=== PATIENT | male | born 1970 | race Caucasian/White ===

== ENCOUNTER 2018-08-12 16:30 | Observation (INO) ==
[2018-08-12] MEDS ORDERED: ASPIRIN PR ONE (16:40)
[2018-08-12] MEDS ORDERED: ASPIRIN PO ONE (16:40)
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
[2018-08-12 17:27] LABS: BASO# 0.07 X1000 (0.0-0.2); BASO% 0.6 % (0.0-0.8); EOS# 0.06 X1000 (0.0-0.7); EOS% 0.5 % (0.0-10.0); HEMATOCRIT 44.7 % (42.0-52.0); HEMOGLOBIN 16.1 g/dL (14.0-18.0); IMM GRAN# 0.07 X1000 (0.0-0.04); IMM GRAN% 0.6 % (0.0-0.5); LYMPH# 2.53 X1000 (1.2-3.4); LYMPH% 23.1 % (20.5-51.1); MCH 29.5 PG (27-31); MONO# 0.76 X1000 (0.11-0.59); MONO% 6.9 % (1.7-9.3); MPV 9.4 FL (7.4-10.4); NEUT# 7.47 X1000 (1.4-6.5); NEUT% 68.3 % (42.2-75.2); PLT 278 X1000 (130-400); RBC 5.45 XMIL (4.7-6.1); RDW 13.1 % (11.5-14.5); WBC 10.96 X1000 (4.8-10.8)
[2018-08-12 17:54] LABS: INR 0.96; PROTIME 13.5 Seconds (11.0-16.0)
--- NOTE | 2018-08-12 17:57 | Diag Imaging Result Doc PS360 ---
EXAM: CHEST-2 VIEWS 08/12/2018 HISTORY: cp TECHNIQUE: AP upright and sitting lateral chest COMMENT: There is elevation of the right hemidiaphragm. This is probably chronic but there are no previous studies available for comparison. The heart size and pulmonary vascularity are within normal limits. There is no evidence of acute pulmonary disease. IMPRESSION: No definite evidence of acute disease. Electronically signed by Juve Robert 08/12/2018 5:55 PM
[2018-08-12 18:07] LABS: AGAP 17; ALB/GLOB RATIO 1.5; ALBUMIN 4.5 g/dL (3.5-5.0); ALKALINE PHOSPHATASE 92 U/L (32-122); BUN 15 mg/dL (8-22); CALCIUM 9.8 mg/dL (8.8-10.2); CHLORIDE 99 mmol/L (98-107); CK PROFILE 147 U/L (24-204); COSMO 273; ESTIMATED GFR > 60; GLUCOSE 103 mg/dL (70-104); GOT 23 U/L (10-34); GPT 38 U/L (10-44); SODIUM 136 mmol/L (136-145); TCO2 20 mmol/L (25-35); TOTAL BILIRUBIN 0.59 mg/dL (0.20-1.00); TOTAL PROTEIN 7.6 g/dL (6.3-8.3)
--- NOTE | 2018-08-12 18:59 | Diag Imaging Result Doc PS360 ---
EXAM: CT HEAD W/O CONTRAST 08/12/2018 HISTORY: Memory Loss TECHNIQUE: This exam was performed using automated exposure control, adjustment of mA or kV according to patient size, and/or use of iterative reconstruction technique. COMMENT: There is no evidence of mass effect, bleed, or abnormal extra-axial fluid collection. There are no previous studies available for comparison. The visualized paranasal sinuses are clear. IMPRESSION: No evidence of acute intracranial disease. Electronically signed by Juve Robert 08/12/2018 6:57 PM
[2018-08-12 20:27] LABS: UR AMPHETAMINES QUAL NONE DETECTED (NONE DETECT); UR BARBITUATES QUAL NONE DETECTED (NONE DETECT); UR BENZODIAZEPIN QUAL NONE DETECTED (NONE DETECT); UR CANNABINOIDS QUAL NONE DETECTED (NONE DETECT); UR COCAINE QUAL NONE DETECTED (NONE DETECT); UR METHADONE QUAL NONE DETECTED (NONE DETECT); UR OPIATES QUAL NONE DETECTED (NONE DETECT); UR OXYCODONE QUAL NONE DETECTED (NONE DETECT); UR PCP QUAL NONE DETECTED (NONE DETECT)
--- NOTE | 2018-08-12 22:07 | HISTORY AND PHYSICAL ---
PRIMARY CARE PHYSICIAN: Dr. Otoole. CHIEF COMPLAINT: Chest pain. HISTORY OF PRESENTING ILLNESS: A 48-year-old male without any significant past medical history presented to emergency department with 1-day history of having chest pain. He describes it as a tightness and states that he was short of breath. The patient was evaluated in the emergency department. Due to his presenting symptoms it was thought that we will place him for observation for further evaluation management. At the time my examination he denied any headache, vision changes, fevers, chills, nausea, vomiting, diarrhea, hemoptysis, melena, weight changes but complained of chest pain and shortness of breath. PAST MEDICAL HISTORY: Includes none. PAST SURGICAL HISTORY: None. ALLERGIES: No known drug allergies. CURRENT MEDICATIONS: None. SOCIAL HISTORY: No history of smoking. Admits to social alcohol use. Denies any illicit drug use. FAMILY HISTORY: No history coronary disease. REVIEW OF SYSTEMS: Fourteen point review of system is as HPI. PHYSICAL EXAMINATION: GENERAL: Cooperative, friendly male he is resting comfortably now. VITAL SIGNS: Temperature 97.4 degrees, pulse 89, respiration 24, blood pressure 137/89. HEENT: Atraumatic, normocephalic. Extraocular movements intact. PERRLA. LUNGS: Clear to auscultation . ABDOMEN: Soft, positive bowel sounds. EXTREMITIES: No edema. NEURO: He is awake, alert, oriented x3. : No bladder distention . SKIN: Warm LABORATORIES AND STUDIES: WBCs 10 10.96, hemoglobin 16.1 , hematocrit 44.7, platelets 278,000, sodium 136, potassium 4.0, chloride 99, CO2 20 , BUN 15, creatinine 1.0, glucose is 103, troponin 0.010, chest x-ray negative. Head CT was negative. ASSESSMENT: A 48-year-old male without significant past medical history presented to emergency department with 1-day history of complaint of chest pain. He was evaluated in the emergency department, due to his presenting symptoms he will need admission for further management. Chest pain. PLAN: 1. Will admit patient medical floor with telemetry. 2. Will continue cardiac workup, check EKG, serial cardiac enzymes , have patient continue aspirin, will use sublingual nitroglycerin, morphine p.r.n. chest pain. 3. We will consult Cardiology. 4. Will put patient on DVT prophylaxis SCD. 5. Will continue to follow and reassess make further recommendation based on patient's clinical course. cc: Benji Soto MD
[2018-08-12] MEDS ORDERED: TYLENOL PO PRN (22:48)
[2018-08-12] MEDS ORDERED: ZOFRAN IV PRN (22:48)
[2018-08-13 05:46] LABS: BASO# 0.06 X1000 (0.0-0.2); BASO% 0.9 % (0.0-0.8); HEMATOCRIT 43.3 % (42.0-52.0); HEMOGLOBIN 15.1 g/dL (14.0-18.0); IMM GRAN# 0.06 X1000 (0.0-0.04); IMM GRAN% 0.9 % (0.0-0.5); LYMPH% 28.7 % (20.5-51.1); MCH 29.4 PG (27-31); MCHC 34.9 g/dL (33-37); MCV 84.2 FL (81-99); MONO# 0.64 X1000 (0.11-0.59); MONO% 9.7 % (1.7-9.3); MPV 9.4 FL (7.4-10.4); NEUT# 3.77 X1000 (1.4-6.5); NEUT% 56.8 % (42.2-75.2); PLT 225 X1000 (130-400); RBC 5.14 XMIL (4.7-6.1); RDW 13.5 % (11.5-14.5); WBC 6.63 X1000 (4.8-10.8)
[2018-08-13] MEDS ORDERED: PRILOSEC PO SCH (07:00)
--- NOTE | 2018-08-13 07:41 | EKG Report ---
Test Performed on : 08/12/2018 4:35:20 PM Test Reason : cp Blood Pressure : / mmHG Vent. Rate : 082 BPM Atrial Rate : 082 BPM P-R Int : 134 ms QRS Dur : 092 ms QT Int : 374 ms P-R-T Axes : 049 -11 015 degrees QTc Int : 436 ms Normal sinus rhythm. Cannot rule out Anterior infarct , age undetermined Abnormal ECG No previous ECGs available Unconfirmed Result
[2018-08-13] MEDS ORDERED: ASPIRIN PO SCH (09:00)
--- NOTE | 2018-08-13 09:14 | EKG Report ---
Test Performed on : 08/13/2018 09:12:57 AM Test Reason : chest pain Blood Pressure : / mmHG Vent. Rate : 057 BPM Atrial Rate : 057 BPM P-R Int : 152 ms QRS Dur : 100 ms QT Int : 430 ms P-R-T Axes : 054 011 024 degrees QTc Int : 418 ms Sinus bradycardia. Otherwise normal ECG When compared with ECG of 12-AUG-2018 16:35, (Unconfirmed) No significant change was found Confirmed by Lluvia DE LOS SANTOS, Ammon ([id number]) on 08/14/2018 8:49:13 AM
[2018-08-13 10:11] VITALS: BP 123/86
[2018-08-13] MEDS ORDERED: LEXISCAN ONE (11:45)
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
--- NOTE | 2018-08-13 12:14 | PROGRESS NOTE ---
DATE: 08/13/2018 SUBJECTIVE: Patient has no major complaints. OBJECTIVE: Blood pressure 123/86, heart rate 63, respiratory rate 17, temperature was 97.6 degrees. Cardiovascular: Regular rate and rhythm. Pulmonary: Bilateral breath sounds clear to auscultation. GI: Was soft, nontender, nondistended. Bowel sounds were positive. Extremities: No clubbing or cyanosis. Lymphatic Examination: No peripheral edema. Laboratory Data: White count was 6, hemoglobin and hematocrit 15 and 43, platelets 225,000. Troponins were negative. Rest of the workup is negative. ASSESSMENT AND PLAN: Chest pain, atypical. He is getting a stress test right now. I examined him in the stress lab. EKG is nonspecific. If those tests are negative, then anticipate possible discharge soon. We will continue to follow closely. Anticipate discharge hopefully later today. cc: Derrell Rizzo MD
[2018-08-13 14:54] LABS: BE 2.6 mmoll (-3.0-3.0); BLOOD TYPE ARTERIAL; HCO3-(ACT) 26.9 mmoll (20.0-26.0); METHB 1.4 % (0.0-1.5); O2(CT) 21.7 mL/dL (15.0-23.0); O2HB 96.5 % (95.0-99.0); PCO2(98.6) 28 mmHg (35-45); PO2(98.6) 129 mmHg (60-100); SAMPLE BLOOD; SAO2 99.6 % (95.0-100.0); THB 15.9 g/dL (11.5-17.4); pH(98.6) 7.54 (7.35-7.45)
[2018-08-13 14:55] LABS: ALLEN TEST YES; MODALITY ROOM AIR
--- NOTE | 2018-08-13 15:33 | Diag Imaging Result Document ---
PROCEDURE NAME: MYOCARDIAL PERF SCAN, STR/REST - 08/13/2018 PROCEDURE PERFORMED: Lexiscan sestamibi interpretation. SUMMARY: The patient was administered 14.3 mCi of technetium-99m sestamibi, after which resting cardiac images were obtained. The patient was unable to achieve target heart rate on treadmill and was stressed using a Lexiscan protocol. The patient was administered Lexiscan 0.4 mg intravenously after which the heart rate increased from 81 beats per minute to 139 beats per minute, while the blood pressure went from 155/115 to 136/100. With Lexiscan, the patient denied chest discomfort. Following the administration of Lexiscan, the patient was administered 41.5 mCi of technetium 99-m sestamibi after which gated stress cardiac images were obtained. Baseline ECG demonstrated sinus rhythm and was within normal limits. With Lexiscan, there were no diagnostic ST-segment changes. SPECT images were reconstructed in the short, horizontal long, and vertical long axes. Review of these images demonstrated no scintigraphic evidence of inducible myocardial ischemia or prior infarct. Gated images demonstrate a calculated left ventricular ejection fraction of 75% with symmetrical wall motion/thickening. CONCLUSIONS: 1. Adequate response to Lexiscan. 2. Clinically negative for chest pain. 3. Electrocardiographically negative for Lexiscan induced myocardial ischemia. 4. Lexiscan sestamibi images demonstrate no scintigraphic evidence of inducible myocardial ischemia. Normal left ventricular systolic function demonstrated. cc: MD Gris Hook PA
--- NOTE | 2018-08-13 23:26 | ECHO REPORT ---
ORDER DATE: 08/13/2018 SUMMARY: 1. Limited 2 dimensional echocardiography performed for followup of left ventricular function. Acoustic window quality is adequate. 2. Aortic valve is trileaflet and opens normally on 2-dimensional images. Mitral and tricuspid valves are without evidence of structural abnormality. Aortic root is normal in size. 3. Normal left ventricular dimensions suggested. Estimated left ejection fraction appears to be at least 65%. No regional wall motion abnormalities evident. Left atrium, right atrium, right ventricle are grossly normal in size. 4. No pericardial effusion. cc: MD Gris Hook PA
== END 2018-08-13 16:12 | disposition home or self-care (01) ==
LOC: ED 16:30 → EDIPHOLD 16:30 → SUATTDRO 22:41
PROVIDERS: ATTEND Internal Medicine
CPT/HCPCS: 70450; 71020; 71046; 78452; 80053; 80101; 80301; 80307; 80324; 80345; 80346; 80353; 80358; 80361; 80365; 82550; 82805; 83880; 83992; 84484; 85025; 85379; 85610; 85651; 85730; 86140; 93005; 93017; 93308; 99285; A9270; A9500; G0431; G0434; G0479; G0480; J2785